=== PATIENT | female | born 1960 | race Caucasian/White ===

== ENCOUNTER → 2017-05-28 | Outpatient (CLI) | payer OTHER | LOC: CIMAGING 09:57 | PROVIDERS: ATTEND Family Medicine | DX: Z12.31 Encounter for screening mammogram for malignant neoplasm of breast (principal) | CPT/HCPCS: G0202 ==

== ENCOUNTER 2018-10-20 16:14 | Emergency (ER) | payer OTHER ==
[2018-10-20] MEDS ORDERED: ACETAMINOPHEN 500 MG TAB PO ONE (16:38)
--- NOTE | 2018-10-20 17:04 | EDPHY ---
H & P Time Seen by Provider: 10/20/18 16:29 HPI/ROS: This patient complains of left upper extremity injuries from a fall at home. 2 hr prior to arrival she tripped over a bunched up rug in her home about on outstretched left upper extremity with complaints of left wrist pain, elbow pain at the region of the radial head and shoulder pain from the apex of the shoulder to the proximal humerus region. She describes the pain intensity is 5/ 10 achy in nature more sharp with movement. She denies any other injuries. She took ibuprofen 600 mg prior to arrival, and drove herself here by private vehicle. ROS: Constitutional: She felt well prior to her fall HEENT: No head injury or facial injuries. Neuro: No numbness or tingling. No head injury. Musculoskeletal: No midline neck or back injuries. No other extremity injuries. Integumentary: No lacerations abrasions 5 point ROS is otherwise negative. Smoking Status: Heavy smoker Physical Exam: Physical Exam Vital signs are normal. General: No acute distress HEENT: Atraumatic. Eyes: Pupils equal and react to light. Extraocular motions are intact. Neck: Nontender Back: Nontender Lungs: No respiratory distress. No chest wall tenderness Cardiac: Brisk capillary refill is intact throughout. Pulses are 2+ and symmetric in the affected extremity. Skin: No rash or pallor. Extremities: Atraumatic normal except for left upper extremity Left wrist: Patient has carpal bone tenderness dorsally and anatomical snuffbox tenderness. No ulnar styloid tenderness. Perhaps mild swelling is present. No ecchymosis. Left elbow: Patient has tenderness to the area of the radial head. She is able flex extend has increased pain with pronation supination maneuvers. Left shoulder: She has tenderness to the apex of the shoulder extends to the proximal humerus. No gross deformity. Neuro: Alert and oriented x3 with no sensorimotor deficits in the affected extremity. Initial differential diagnosis: Wrist fracture, wrist sprain, elbow fracture, elbow sprain, shoulder sprain, shoulder fracture Constitutional: Initial Vital Signs Temperature (C) 36.7 C 10/20/18 16:30 Heart Rate 88 10/20/18 16:30 Respiratory Rate 16 10/20/18 16:30 Blood Pressure 140/91 H 10/20/18 16:30 O2 Sat (%) 96 10/20/18 16:30 O2 Delivery Mode Room Air Allergies/Adverse Reactions: Penicillins Allergy (Unknown, Verified 10/20/18 16:28) sulfamethoxazole [From Septra] Allergy (Unknown, Verified 10/20/18 16:28) trimethoprim [From Septra] Allergy (Unknown, Verified 10/20/18 16:28) Home Medications: Medication Instructions Recorded NK [No Known Home Meds] 10/20/18 MDM/Departure - MDM Diagnostics: Shoulder x-rays: Negative by my interpretation Imaging Results: Imaging Impressions Wrist X-Ray 10/20/18 16:38 Impression: No acute abnormality. Left Elbow, 3 Views, at 4:52 PM: There is a slightly impacted fracture at the radial head/neck junction. This is associated with displacement of the distal anterior and posterior humeral fat pads, consistent with a concurrent joint effusion. There is no supracondylar fracture. The olecranon is intact. There is no radiopaque foreign body, or loose osteochondral body. Impression: Fracture at the radial head/neck junction, with a small elbow joint effusion. Portable Left Wrist (4 Views), at 4:49 PM: On image R2:1, there is an equivocal radiolucency at the base of the radial styloid, and a hairline fracture is not excluded (as the patient reportedly is pinpoint-tender in this location). There is no dislocation identified. The joint spaces have a normal thickness. The radiocarpal and intercarpal alignments are maintained. The pronator fat pad is not significantly displaced. A metallic ring projects over the fourth digit proximal phalanx. There is some mild degenerative change at the thumb carpometacarpal joint. Impression: Equivocal hairline fracture through the base of the radial styloid. If there is further concern regarding an occult carpal fracture, conservative management and short-term repeat radiographic follow-up in 7-14 days is suggested. Findings were discussed with DANO LEYVA MD at 17:15, on 10/20/2018. Elbow X-Ray 10/20/18 16:39 Impression: No acute abnormality. Left Elbow, 3 Views, at 4:52 PM: There is a slightly impacted fracture at the radial head/neck junction. This is associated with displacement of the distal anterior and posterior humeral fat pads, consistent with a concurrent joint effusion. There is no supracondylar fracture. The olecranon is intact. There is no radiopaque foreign body, or loose osteochondral body. Impression: Fracture at the radial head/neck junction, with a small elbow joint effusion. Portable Left Wrist (4 Views), at 4:49 PM: On image R2:1, there is an equivocal radiolucency at the base of the radial styloid, and a hairline fracture is not excluded (as the patient reportedly is pinpoint-tender in this location). There is no dislocation identified. The joint spaces have a normal thickness. The radiocarpal and intercarpal alignments are maintained. The pronator fat pad is not significantly displaced. A metallic ring projects over the fourth digit proximal phalanx. There is some mild degenerative change at the thumb carpometacarpal joint. Impression: Equivocal hairline fracture through the base of the radial styloid. If there is further concern regarding an occult carpal fracture, conservative management and short-term repeat radiographic follow-up in 7-14 days is suggested. Findings were discussed with DANO LEYVA MD at 17:15, on 10/20/2018. Shoulder X-Ray 10/20/18 16:39 Impression: No acute abnormality. Left Elbow, 3 Views, at 4:52 PM: There is a slightly impacted fracture at the radial head/neck junction. This is associated with displacement of the distal anterior and posterior humeral fat pads, consistent with a concurrent joint effusion. There is no supracondylar fracture. The olecranon is intact. There is no radiopaque foreign body, or loose osteochondral body. Impression: Fracture at the radial head/neck junction, with a small elbow joint effusion. Portable Left Wrist (4 Views), at 4:49 PM: On image R2:1, there is an equivocal radiolucency at the base of the radial styloid, and a hairline fracture is not excluded (as the patient reportedly is pinpoint-tender in this location). There is no dislocation identified. The joint spaces have a normal thickness. The radiocarpal and intercarpal alignments are maintained. The pronator fat pad is not significantly displaced. A metallic ring projects over the fourth digit proximal phalanx. There is some mild degenerative change at the thumb carpometacarpal joint. Impression: Equivocal hairline fracture through the base of the radial styloid. If there is further concern regarding an occult carpal fracture, conservative management and short-term repeat radiographic follow-up in 7-14 days is suggested. Findings were discussed with DANO LEYVA MD at 17:15, on 10/20/2018. Imaging: Discussed imaging studies w/ manager stars Radiologist (Wrist and elbow x- rays), I viewed and interpreted images myself (Shoulder x-rays) Medications Given: Discontinued Medications Acetaminophen (Tylenol) 1,000 mg PO EDNOW ONE Stop: 10/20/18 16:39 Last Admin: 10/20/18 16:47 Dose: 1,000 mg ED Course/Re-evaluation: Thumb spica splint with Ortho Glass placed by our tech Ariadna with my supervision. Patient is neurovascular intact post splint application Sling is also placed on patient by our tech. Discussion: Patient with radial styloid fracture and radial neck fracture. Counseled regarding this. No evidence of neurovascular compromise or other red flag findings. She is planning on heading on vacation this Thursday and will return week. I instructed her to call the orthopedic physician tomorrow to arrange follow-up appointment either for tomorrow or for her return in 8 days. - Depart Disposition: Home, Routine, Self-Care Clinical Impression: Wrist fracture, closed Qualifiers: Encounter type: initial encounter Laterality: left Qualified Code(s): S62.102A - Fracture of unspecified carpal bone, left wrist, initial encounter for closed fracture Radial neck fracture Qualifiers: Encounter type: initial encounter Fracture type: closed Fracture alignment: nondisplaced Laterality: left Qualified Code(s): S52.135A - Nondisplaced fracture of neck of left radius, initial encounter for closed fracture Condition: Good Instructions: Elbow Fracture (ED), Wrist Fracture in Adults (ED) Additional Instructions: Diagnoses: 1. Wrist fracture (radial styloid) 2. Elbow fracture at the radial neck Plan: Ibuprofen Tylenol for pain Ice Keep splint on at all times Follow up with orthopedic physician listed below to arrange follow-up appointment for a recheck in for casting. Referrals: Nelia Mirza MD [Primary Care Provider] - As per Instructions Swapnil Gillespie MD [Medical Doctor] - As per Instructions
[2018-10-20 18:13] VITALS: BP 150/88
== END 2018-10-20 17:50 | disposition home or self-care (01) ==
LOC: CED 16:14
PROC: 2W3DX1Z Immobilization of Left Lower Arm using Splint (ICD-10-PCS; principal; 2018-10-20)
DX: S52.135A Nondisplaced fracture of neck of left radius, initial encounter for closed fracture (principal); S52.512A Displaced fracture of left radial styloid process, initial encounter for closed fracture; W01.0XXA Fall on same level from slipping, tripping and stumbling without subsequent striking against object, initial encounter; Y92.009 Unspecified place in unspecified non-institutional (private) residence as the place of occurrence of the external cause; Y99.9 Unspecified external cause status; Y93.9 Activity, unspecified
CPT/HCPCS: 73030-PO; 73080-PO; 73110-PO; 99283-ER

== ENCOUNTER 2019-04-04 17:18 | Emergency (ER) | payer OTHER | END 2019-04-04 17:58 | disposition home or self-care (01) | LOC: CED 17:18 ==